=== PATIENT | female | born 1970 | race Caucasian/White ===

== ENCOUNTER 2017-12-20 22:31 | Emergency (ER) | payer SELFPAY ==
[2017-12-20] MEDS: Take Home: Acetaminophen/HYDROcodone 325-10 MG, 5 Tab Pack PO ONE (23:04)
--- NOTE | 2017-12-20 23:21 | EDM.PDOC ---
ED HPI GENERAL MEDICAL PROBLEM - General Chief Complaint: ENT Problem Stated Complaint: dental pain/swelling Time Seen by Provider: 12/20/17 22:39 Source of Information: Reports: Patient History Limitations: Reports: No Limitations - History of Present Illness INITIAL COMMENTS - FREE TEXT/NARRATIVE: Pt. has been experiencing dental pain intermittently for several days. She denies any fever or chills. No weakness or difficulty with swallowing. Pt. states that she fractured her tooth several days ago. 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 Neurological History: Reports: Migraines Psychiatric History: Reports: Depression - Past Surgical History Female Surgical History: Reports: Tubal Ligation Social & Family History - Tobacco Use Smoking Status *Q: Former Smoker Used Tobacco, but Quit: Yes Month/Year Tobacco Last Used: 2010 ED ROS GENERAL - Review of Systems Review Of Systems: See Below Constitutional: Reports: No Symptoms HEENT: Reports: Dental Pain Respiratory: Reports: No Symptoms Cardiovascular: Reports: No Symptoms Endocrine: Reports: No Symptoms GI/Abdominal: Reports: No Symptoms : Reports: No Symptoms Musculoskeletal: Reports: No Symptoms Skin: Reports: No Symptoms Neurological: Reports: No Symptoms Psychiatric: Reports: No Symptoms Hematologic/Lymphatic: Reports: No Symptoms Immunologic: Reports: No Symptoms ED EXAM, GENERAL - Physical Exam Exam: See Below General Appearance: Alert, WD/WN, No Apparent Distress Throat/Mouth: Normal Inspection, Normal Lips, Normal Voice, No Airway Compromise , Other (L lower premolar is fractured. There is some minimal erythema to the gums.) Course - Vital Signs Last Recorded V/S: Last Vital Signs Temp 36.9 C 12/20/17 22:39 Pulse 75 12/20/17 22:39 Resp 18 12/20/17 22:39 BP 128/80 12/20/17 22:39 Pulse Ox 100 12/20/17 22:39 - Orders/Labs/Meds Meds: Medications Discontinued Medications Generic Name Dose Route Start Last Admin Trade Name Marielle PRN Reason Stop Dose Admin Hydrocodone Bitart/Acetaminophen 1 packet 12/20/17 22:58 12/20/17 23:04 Take Home: Acetaminophen/Hydrocodone 325-10mg PO 12/20/17 22:59 1 packet ONETIME ONE Administration Departure - Departure Time of Disposition: 23:15 Disposition: Home, Self-Care 01 Clinical Impression: Dental caries - Discharge Information Instructions: Dental Abscess Referrals: PCP,None [Primary Care Provider] - Forms: ED Department Discharge Additional Instructions: Continue with the Pen VK Rayle 10/325mg 1 every 4-6 hours as needed for pain. Ibuprofen 800mg every 8 hours, no sooner, as this will harm the kidneys. Follow-up with dentist ANJU.
== END 2017-12-20 23:11 | disposition home or self-care (01) ==
LOC: VM.ED 22:31
DX: K02.9 Dental caries, unspecified (principal); Z88.8 Allergy status to other drugs, medicaments and biological substances; Z88.0 Allergy status to penicillin; Z87.891 Personal history of nicotine dependence
CPT/HCPCS: 99282; 99283; A9270